=== PATIENT | female | born 1940 | race Asian ===

== ENCOUNTER → 2024-10-30 | Outpatient (CLI) | payer MEDICARE, OTHER ==
[~2024-10-30] VITALS: Ht 162.6 cm; Wt 56.0 kg
[~2024-10-30] MED LIST: ALBUTEROL; AMLO2.5T96 PO; ASPI-825 PO; CALC-1124 PO; FLUTICASONE; GARL10002 PO; MULTIVIT; SALMETEROL; VIT C; VIT D DAILY
[2024-10-30 12:45] VITALS: BP 146/91; PULSE 69; RESP 21; TEMP 98.5; O2SAT 95
== END | disposition home or self-care (01) ==
LOC: SRCNTR 12:20
PROVIDERS: ATTEND Internal Medicine Pulmonary Disease
DX: J96.01 Acute respiratory failure with hypoxia (principal); I50.9 Heart failure, unspecified; I71.21 Aneurysm of the ascending aorta, without rupture; J44.1 Chronic obstructive pulmonary disease with (acute) exacerbation; Z79.51 Long term (current) use of inhaled steroids; Z79.82 Long term (current) use of aspirin; Z79.899 Other long term (current) drug therapy
CPT/HCPCS: G0463; Z7500

== ENCOUNTER → 2025-04-30 | Outpatient (CLI) | payer MEDICARE, OTHER ==
[~2025-04-30] VITALS: Ht 162.6 cm; Wt 54.0 kg
[~2025-04-30] MED LIST changes: +BENZ-227 PO; +IPRA3AMP24 IH; +PRED-729 PO
[2025-04-30 12:03] VITALS: BP 127/84; PULSE 83; RESP 16; TEMP 98.1; O2SAT 95
== END | disposition home or self-care (01) ==
LOC: SRCNTR 10:59
PROVIDERS: ATTEND Internal Medicine Pulmonary Disease
DX: J44.9 Chronic obstructive pulmonary disease, unspecified (principal)
CPT/HCPCS: G0463; Z7500